=== PATIENT | male | born 1990 | race Caucasian/White ===

== ENCOUNTER 2017-06-16 22:35 | Emergency (ER) | payer SELFPAY ==
[~2017-06-16] VITALS: Ht 172.7 cm; Wt 111.8 kg
[2017-06-16 22:42] VITALS: TEMP 98.3
[2017-06-16 23:28] LABS: PH 5 (5-8); SQUAMOUS EPITHELIAL 0-2 /hpf; URINE APPEARANCE Clear; URINE BACTERIA None Seen /hpf; URINE BILIRUBIN Negative (NEGATIVE); URINE BLOOD 3+ (NEGATIVE); URINE COLOR Yellow; URINE GLUCOSE Negative (NEGATIVE); URINE KETONE Negative (NEGATIVE); URINE RBC >50 /hpf; URINE UROBILINOGEN >=4.0 mg/dL (NEGATIVE); URINE WBC 0-2 /hpf
[2017-06-16 23:41] LABS: BASO # 0.1 (0.0-0.2); BASO % 0.6 % (0.0-2.0); EOS # 0.2 (0.0-0.7); EOS % 1.1 % (0-4.0); GRAN # 7.8 (1.4-6.5); GRAN % 55.6 % (42.2-75.2); HEMATOCRIT 42.2 % (42.0-52.0); HEMOGLOBIN 14.5 g/dl (13.5-18.0); LYMPH % 35.6 % (20.0-51.0); MEAN CELL VOLUME 91 fl (80.0-100.0); MEAN CORPUSCULAR HEMOGLOBIN 31 pg (27.0-31.0); MEAN CORPUSCULAR HGB CONC 34 g/dl (33.0-37.0); MEAN PLATELET VOLUME 10.5 fl (7.4-10.4); MONO # 0.9 (0.1-0.6); MONO % 6.5 % (1.7-9.3); PLATELET COUNT 336 K/mm3 (130-400); RED BLOOD COUNT 4.62 M/mm3 (4.20-5.60); REDCELL DISTRIBUTION WIDTH-CV 11.9 % (11.5-14.5)
[2017-06-16 23:52] LABS: ADJUSTED CALCIUM 8.9 mg/dL (8.4-10.2); ALBUMIN 4.6 gm/dL (3.5-5.0); BILIRUBIN,TOTAL 0.6 mg/dL (0.0-1.0); CALCIUM 9.4 mg/dL (8.4-10.2); CREATININE, serum 1.09 mg/dL (0.66-1.25); POTASSIUM 3.7 mmol/L (3.4-5.0)
[2017-06-17] MEDS ORDERED: PERCOCET 325 MG1 TA2 PO (01:00)
[2017-06-17] MEDS ORDERED: ZOFRAN ODT4 MG PO (01:00)
[2017-06-17 01:30] VITALS: BP 127/84; PULSE 66
== END 2017-06-17 01:30 | disposition home or self-care (01) ==
LOC: COL.ER 22:35
PROVIDERS: Nurse Practitioner
DX: N20.1 Calculus of ureter (principal)
CPT/HCPCS: J1170; J1885; J2405; J7030; Q9967

== ENCOUNTER → 2020-06-08 | Outpatient (CLI) | payer BC ==
[~2020-06-08] MED LIST: PERCOCET 325 MG1 TA2 PO; ZOFRAN ODT4 MG PO
== END ==
LOC: ZCOL.LAB 13:48
DX: Z20.828 Contact with and (suspected) exposure to other viral communicable diseases (principal)